=== PATIENT | female | born 1945 | race Caucasian/White ===

== ENCOUNTER 2024-11-13 07:53 | Day surgery (SDC) | payer MEDICARE ==
[2024-11-13] MEDS ORDERED: Lidocaine 1% PF 5 ML VIAL ONE (08:35)
[2024-11-13] MEDS ORDERED: Sodium Bicarbonate 2.5 MEQ/5 ML SDV ONE (08:35)
== END 2024-11-13 10:30 | disposition home or self-care (01) ==
LOC: CT 07:53
PROVIDERS: ATTEND Student in an Organized Health Care Education/Training Program
DX: M25.552 Pain in left hip (principal); Z96.643 Presence of artificial hip joint, bilateral
CPT/HCPCS: 73701; 77002; J3301; J3490; Q9967; J0665